=== PATIENT | male | born 2000 | race African-American/Black ===

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

== ENCOUNTER 2023-01-07 19:40 | Emergency (ER) | payer OTHER ==
[~2023-01-07] VITALS: Ht 177.8 cm; Wt 70.3 kg
[2023-01-07 19:59] VITALS: BP 117/71
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
[2023-01-07] MEDS ORDERED: IBUPROFEN 800 MG (MOTRIN) TAB PO ONE (20:15)
== END 2023-01-07 20:25 | disposition home or self-care (01) ==
LOC: EDUNIT# 19:40 → ER 19:42
DX: S13.9XXA Sprain of joints and ligaments of unspecified parts of neck, initial encounter (principal); R51.9 Headache, unspecified; V47.5XXA Car driver injured in collision with fixed or stationary object in traffic accident, initial encounter; Y92.410 Unspecified street and highway as the place of occurrence of the external cause
CPT/HCPCS: 99283